=== PATIENT | male | born 1965 | race Caucasian/White ===

== ENCOUNTER 2016-09-16 16:43 | Emergency (ER) | payer BC, SELFPAY ==
[2016-09-16] MEDS ORDERED: Aspirin 81 MG Tab.Chew PO ONE (17:10)
--- NOTE | 2016-09-16 17:21 | EDM.PDOC ---
ED HISTORY OF PRESENT ILLNESS - General Stated Complaint: CHEST PAIN Time Seen by Provider: 09/16/16 16:58 Source of Information: Reports: Patient History Limitations: Reports: No limitations - History of Present Illness INITIAL COMMENTS - FREE TEXT/NARRATIVE: Patient presents from a clinic visit with Dr. Aguirre this afternoon. He had been having problems with cough, bronchitis and possible allergies and treated with Z-pack without success. Today he also complained of heaviness in his chest so a troponin was checked with 0.08 result. Pt tells me he has noticed a definite heaviness across his upper chest for the last week or two. This occurs with activity and resolves with rest, typically lasting a few minutes. Not a true pain but a definite heavy feeling he says. He has never had this before and denies any problems with his heart in the past. He is not currently having any chest pain or heaviness and says the last episode was earlier today at work while walking. He doesn't take any medicines routinely. His glucose was 170 and hba1c 6.0; Dr. Aguirer says he might be early/borderline diabetic. Cholesterol is not high. - Related Data Allergies/ADRs: Allergies Allergy/AdvReac Type Severity Reaction Status Date / Time No Known Drug Allergies Allergy none Verified 09/16/16 17:23 Home Meds: Home Meds . [No Known Home Meds] 09/16/16 [History] ED ROS GENERAL - Review of Systems Review Of Systems: See Below Constitutional: Denies: fever, chills, malaise, weakness, diaphoresis Respiratory: Denies: Shortness of Breath, Wheezing, Cough Cardiovascular: Denies: Chest pain, Lightheadedness, Syncope Endocrine: Denies: fatigue GI/Abdominal: Denies: Abdominal pain, Nausea, Vomiting : Reports: no symptoms Musculoskeletal: Denies: neck pain, shoulder pain, arm pain Skin: Denies: cyanosis, jaundice, mottled, pallor, diaphoresis Neurological: Denies: Confusion, Dizziness, Headache, Trouble Speaking Psychiatric: Denies: Agitation, Anxiety, Confusion ED EXAM, GENERAL - Physical Exam Exam: See Below Exam Limited By: No limitations General Appearance: alert, WD/WN, no apparent distress Eye Exam: bilateral eye: EOMI, normal inspection, PERRL Ears: normal external exam, hearing grossly normal Nose: normal inspection Throat/Mouth: Normal lips, Normal voice, No airway compromise Head: atraumatic, normocephalic Neck: normal inspection, full range of motion Respiratory/Chest: no respiratory distress, lungs clear, normal breath sounds, chest non-tender Cardiovascular: normal peripheral pulses, regular rate, rhythm, no edema, no gallop, no JVD, no murmur Peripheral Pulses: 2+: carotid (L), carotid (R), radial (L), radial (R), posterior tibial (L), posterior tibial (R) GI/Abdominal: normal bowel sounds, soft, non tender Extremities: normal inspection, normal range of motion, non-tender, no pedal edema Neurological: alert, oriented, normal cognition, no motor/sensory deficits Psychiatric: normal affect, normal mood Skin Exam: Warm, Dry, Intact, Normal color, No rash Course - Vital Signs Last Recorded V/S: Last Vital Signs Temp 97.1 F 09/16/16 17:20 Pulse 92 09/16/16 17:46 Resp 11 L 09/16/16 17:46 BP 133/88 09/16/16 17:46 Pulse Ox 96 09/16/16 17:46 - Orders/Labs/Meds Labs: Laboratory Tests 09/16/16 09/16/16 09/16/16 Range/Units 17:15 17:15 17:15 WBC 9.6 (5.0-10.0) 10^3/uL RBC 4.36 L (4.50-6.00) 10^6/uL Hgb 13.0 (13.0-17.0) g/dL Hct 38.0 L (40.0-52.0) % MCV 87.0 (82.0-92.0) fL MCH 29.8 (27.0-31.0) pg MCHC 34.2 (32.0-36.0) g/dL RDW 12.2 (11.5-14.5) % Plt Count 229 (150-300) 10^3/uL MPV 8.0 (7.4-10.4) fL Neut % (Auto) 60.7 (50.0-70.0) % Lymph % (Auto) 26.4 (20.0-40.0) % Hancock % (Auto) 10.4 H (2.0-8.0) % Eos % (Auto) 1.7 (1.0-3.0) % Baso % (Auto) 0.8 (0.0-1.0) % Neut # 5.8 (2.5-7.0) 10^3/uL Lymph # 2.5 (1.0-4.0) 10^3/uL Hancock # 1.0 H (0.1-0.8) 10^3/uL Eos # 0.2 (0.1-0.3) 10^3/uL Baso # 0.1 (0.0-0.1) 10^3/uL Sodium 145 (136-145) mmol/L Potassium 4.1 (3.3-5.3) mmol/L Chloride 107 (98-115) mmol/L Carbon Dioxide 26.3 (21.0-32.0) mmol/L BUN 13 (6-25) mg/dL Creatinine 0.88 (0.51-1.17) mg/dL Est Cr Clr Drug Dosing 95.13 mL/min Estimated GFR (MDRD) > 60 mL/min Glucose 110 (70-110) mg/dL Calcium 8.4 L (8.7-10.3) mg/dL CK-MB (CK-2) 2.70 (0.00-4.30) ng/mL Troponin I 0.08 H* (0.00-0.070) ng/mL Meds: Medications Discontinued Medications Generic Name Dose Route Start Last Admin Trade Name Freq PRN Reason Stop Dose Admin Aspirin 324 mg 09/16/16 17:10 09/16/16 17:24 Aspirin PO 09/16/16 17:11 324 mg ONETIME ONE Administration - Re-Assessments/Exams Free Text/Narrative Re-Assessment/Exam: 09/16/16 18:38 Troponin x 2 two hours apart were both 0.08, CKMB is 2.7, EKG shows no ST elevation or depressions. There are T-wave inversions in V5-6 and biphasic T- wave in V4. Patient has had no chest pain, pressure or heaviness for the last few hours and is completely asymptomatic in ER. Discussed findings with Dr. Fortune ([facility] public [facility] microbiologist in [place]) who advised aspirin and follow up in his clinic tomorrow for evaluation and stress test. Discussed findings and plan with patient and his . Pt discharged in stable condition. Departure - Departure Time of Disposition: 18:20 Disposition: Home, Self-Care 01 Condition: good Clinical Impression: Stable angina Instructions: Angina Pectoris Referrals: Eun Haines MD [Primary Care Provider] - Additional Instructions: 1. Take an aspirin daily until you see the public health microbiologist. 2. Tomorrow morning call the cardiology clinic at the number the nurse gave you to schedule an appointment and stress test with them in the next day or two. 3. If you have worsening chest pain or heaviness before then go to the ER right away.
[2016-09-16 17:43] LABS: CHLORIDE,CL 107 mmol/L (98-115); SODIUM,NA 145 mmol/L (136-145)
[2016-09-16 17:46] VITALS: BP 133/88
== END 2016-09-16 18:25 | disposition home or self-care (01) ==
LOC: KA.ED 16:43
DX: I20.8 Other forms of angina pectoris (principal)
CPT/HCPCS: 36415; 80048; 82553; 84484; 85025; 99285; A9270; 93005

== ENCOUNTER 2016-10-04 14:55 | Emergency (ER) | payer BC, SELFPAY ==
--- NOTE | 2016-10-04 16:11 | EDM.PDOC ---
ED HISTORY OF PRESENT ILLNESS - General Chief Complaint: Respiratory Problem Stated Complaint: SHORTNESS OF BREATH Time Seen by Provider: 10/04/16 15:15 Source of Information: Reports: Patient History Limitations: Reports: No limitations - History of Present Illness INITIAL COMMENTS - FREE TEXT/NARRATIVE: PT STATES HE IS BECOMING GRADUALLY MORE SHORT OF BREATH OVER PAST MONTH. SYMPTOM WORSE WITH LYING FLAT. WAS SEEN HERE SEPTEMBER 16 FOR URI AND WAS ALSO REFERRED TO CARDIOLOGY. DIAGNOSED WITH LVH AND FOUND TO HAVE EJ OF 25%. DENIES CP, N/V/D, ABD PAIN, LE EDEMA, RYAN, OR DIZZINESS. STARTED ON NEW HTN MEDS RECENTLY AND HAS FELT WEAK SINCE. Timing/Duration: Reports: Gradual onset Severity: mild Quality: Reports: Other (DENIES PAIN) Improves with: Reports: Rest Worsens with: Reports: Other (ambulation) Associated Symptoms (General): Reports: cough, shortness of breath - Related Data Allergies/ADRs: Allergies Allergy/AdvReac Type Severity Reaction Status Date / Time No Known Drug Allergies Allergy none Verified 10/04/16 15:15 Home Meds: Home Meds Aspirin [Adult Low Dose Aspirin EC] 81 mg PO DAILY 10/04/16 [History] Carvedilol [Carvedilol] 6.25 mg PO BID 10/04/16 [History] Lisinopril [Lisinopril] 10 mg PO DAILY 10/04/16 [History] Loratadine [Claritin] 10 mg PO DAILY 10/04/16 [History] Past Medical History HEENT History: Reports: None Cardiovascular History: Reports: Hypertension Musculoskeletal History: Reports: Fracture Neurological History: Reports: Concussion - Infectious Disease History Infectious Disease History: Reports: Chicken pox, Measles, Mumps - Past Surgical History HEENT Surgical History: Reports: Adenoidectomy, Tonsillectomy Cardiovascular Surgical History: Reports: None Musculoskeletal Surgical History: Reports: Other (see below) Other Musculoskeletal Surgeries/Procedures:: repair of fracture to left thumb/ hand Social & Family History - Family History HEENT: Reports: None Cardiac: Reports: None Respiratory: Reports: None OBGYN: Reports: None Musculoskeletal: Reports: None Endocrine/Metabolic: Reports: Diabetes, type II - Tobacco Use Smoking Status *Q: Never Smoker Second Hand Smoke Exposure: No - Caffeine Use Caffeine Use: Reports: Soda - Recreational Drug Use Recreational Drug Use: No ED ROS GENERAL - Review of Systems Review Of Systems: ROS reveals no pertinent complaints other than HPI. Constitutional: Reports: weakness, fatigue HEENT: Reports: No symptoms Respiratory: Reports: Shortness of Breath, Cough Cardiovascular: Reports: No symptoms Endocrine: Reports: no symptoms GI/Abdominal: Reports: No symptoms : Reports: no symptoms Musculoskeletal: Reports: no symptoms Skin: Reports: no symptoms Neurological: Reports: No Symptoms Psychiatric: Reports: No symptoms Hematologic/Lymphatic: Reports: no symptoms Immunologic: Reports: no symptoms ED EXAM, GENERAL - Physical Exam Exam: See Below Exam Limited By: No limitations General Appearance: alert, WD/WN, no apparent distress Nose: normal inspection, normal mucosa, no blood Throat/Mouth: Normal inspection, Normal oropharynx, No airway compromise Head: atraumatic, normocephalic Neck: normal inspection, supple Respiratory/Chest: no respiratory distress, chest non-tender, rales ([facility] [employer]) Cardiovascular: regular rate, rhythm, no murmur, no rub GI/Abdominal: normal bowel sounds, soft, non tender Back Exam: normal inspection. No: CVA tenderness (L), CVA tenderness (R) Extremities: normal inspection, no pedal edema Neurological: alert, oriented, normal cognition Psychiatric: normal affect, normal mood Skin Exam: Warm, Dry, Intact, Normal color, No rash Lymphatic: no adenopathy EKG INTERPRETATION EKG Date: 10/04/16 Time: 16:30 Rhythm: NSR [place]: LAD-left axis deviation QT: prolonged Comparison: no change Course - Vital Signs Last Recorded V/S: Last Vital Signs Temp 97.3 F 10/04/16 15:10 Pulse 84 10/04/16 15:10 Resp 12 10/04/16 15:10 BP 147/89 H 10/04/16 15:10 Pulse Ox 95 10/04/16 15:10 - Orders/Labs/Meds Orders: Active Orders 24 hr Category Date Time Status Chest 2V [CR] Stat Exams 10/04/16 15:26 Taken - Radiology Interpretation Free Text/Narrative:: CXR SHOWS MILD CONGESTION - Re-Assessments/Exams Free Text/Narrative Re-Assessment/Exam: 10/04/16 17:34 PT AFEBRILE, NONTOXIC APPEARING, VSS. BNP ELEVATED AND GIVEN 20MG LASIX. SCHEDULED WITH DR ARORA ON THURSDAY. Departure - Departure Time of Disposition: 17:35 Disposition: Home, Self-Care 01 Condition: good Clinical Impression: Congestive heart failure (CHF) Qualifiers: Congestive heart failure type: unspecified congestive heart failure type Congestive heart failure chronicity: acute on chronic Qualified Code(s): I50.9 - Heart failure, unspecified Instructions: Heart Failure, [id number] Forms: ED Department Discharge Additional Instructions: FOLLOW UP WITH DR ARORA ON THURSDAY SCHEDULED. RETURN TO ER SOONER IF SYMPTOMS CONTINUE - My Orders Last 24 Hours: My Active Orders 10/04/16 15:26 Chest 2V [CR] Stat - Assessment/Plan Last 24 Hours: My Active Orders 10/04/16 15:26 Chest 2V [CR] Stat Assessment:: CHF Plan: FOLLOW UP WITH PCP ON THURSDAY
[2016-10-04] MEDS ORDERED: Sodium Chloride 0.9% 5 ML Syringe FLUSH PRN (16:13)
[2016-10-04 16:51] LABS: CHLORIDE,CL 108 mmol/L (98-115); SODIUM,NA 146 mmol/L (136-145)
[2016-10-04] MEDS ORDERED: Furosemide 20 MG Tab PO ONE ×2 (17:02→17:17)
[2016-10-04 17:36] VITALS: BP 135/91
== END 2016-10-04 18:00 | disposition home or self-care (01) ==
LOC: KA.ED 14:55
DX: I11.0 Hypertensive heart disease with heart failure (principal); I50.9 Heart failure, unspecified; Z98.890 Other specified postprocedural states; Z79.82 Long term (current) use of aspirin; Z79.899 Other long term (current) drug therapy
CPT/HCPCS: 36415; 71020; 80053; 83880; 85025; 93005; 99285; A9270

== ENCOUNTER 2016-10-05 08:23 | Emergency (ER) | payer BC, SELFPAY ==
[2016-10-05 08:33] VITALS: BP 141/98
[2016-10-05 09:26] LABS: CHLORIDE,CL 109 mmol/L (98-115); SODIUM,NA 144 mmol/L (136-145)
--- NOTE | 2016-10-05 09:30 | EDM.PDOC ---
ED HISTORY OF PRESENT ILLNESS - General Chief Complaint: Respiratory Problem Stated Complaint: SHORTNESS OF BREATH Time Seen by Provider: 10/05/16 09:00 Source of Information: Reports: Patient History Limitations: Reports: No limitations - History of Present Illness INITIAL COMMENTS - FREE TEXT/NARRATIVE: PT STATES HIS SOB DID NOT IMPROVE FROM YESTERDAY'S VISIT. TOOK LASIX BUT HAD HARD TIME GETTING COMFORTABLE AND COULD NOT LIE FLAT TO SLEEP. SEEN HERE AND 10/04/16 FOR SAME. YESTERDAY CXR SHOWED MILD CHF AND BNP WAS ELEVATED AT 1340. DENIES CP, RYAN, ABD PAIN, N/V/D. HAS PERSISTENT COUGH BUT STARTED ON LISINOPRIL 3 WEEKS AGO. Symptom Onset Date: 09/16/16 Timing/Duration: Reports: Week(s):, Gradual onset Severity: mild Improves with: Reports: None Worsens with: Reports: Other (LYING FLAT) Associated Symptoms (General): Reports: cough, shortness of breath. Denies: diaphoresis, fever/chills, nausea/vomiting - Related Data Allergies/ADRs: Allergies Allergy/AdvReac Type Severity Reaction Status Date / Time No Known Drug Allergies Allergy none Verified 10/04/16 15:15 Home Meds: Home Meds Aspirin [Adult Low Dose Aspirin EC] 81 mg PO DAILY 10/04/16 [History] Carvedilol [Carvedilol] 6.25 mg PO BID 10/04/16 [History] Lisinopril [Lisinopril] 10 mg PO DAILY 10/04/16 [History] Loratadine [Claritin] 10 mg PO DAILY 10/04/16 [History] Furosemide [Lasix] 20 mg PO DAILY 10/05/16 [History] Past Medical History HEENT History: Reports: None Cardiovascular History: Reports: Heart Failure, Hypertension Musculoskeletal History: Reports: Fracture Neurological History: Reports: Concussion - Infectious Disease History Infectious Disease History: Reports: Chicken pox, Measles, Mumps - Past Surgical History HEENT Surgical History: Reports: Adenoidectomy, Tonsillectomy Cardiovascular Surgical History: Reports: None Musculoskeletal Surgical History: Reports: Other (see below) Other Musculoskeletal Surgeries/Procedures:: repair of fracture to left thumb/ hand Social & Family History - Family History HEENT: Reports: None Cardiac: Reports: None Respiratory: Reports: None OBGYN: Reports: None Musculoskeletal: Reports: None Endocrine/Metabolic: Reports: Diabetes, type II - Tobacco Use Smoking Status *Q: Never Smoker Second Hand Smoke Exposure: No - Caffeine Use Caffeine Use: Reports: Soda - Recreational Drug Use Recreational Drug Use: No ED ROS GENERAL - Review of Systems Review Of Systems: ROS reveals no pertinent complaints other than HPI. Constitutional: Reports: no symptoms HEENT: Reports: No symptoms Respiratory: Reports: Shortness of Breath Cardiovascular: Reports: No symptoms Endocrine: Reports: no symptoms GI/Abdominal: Reports: No symptoms : Reports: no symptoms Musculoskeletal: Reports: no symptoms Skin: Reports: no symptoms Neurological: Reports: No Symptoms Psychiatric: Reports: Anxiety Hematologic/Lymphatic: Reports: no symptoms Immunologic: Reports: no symptoms ED EXAM, GENERAL - Physical Exam Exam: See Below Exam Limited By: No limitations General Appearance: alert, WD/WN, no apparent distress Nose: normal inspection, no blood Throat/Mouth: Normal inspection, Normal oropharynx, No airway compromise Respiratory/Chest: no respiratory distress, lungs clear, normal breath sounds, no accessory muscle use, chest non-tender Cardiovascular: regular rate, rhythm, no murmur EKG INTERPRETATION EKG Date: 10/05/16 Time: 08:55 [place]: LAD-left axis deviation ST-T: depressed QT: prolonged Comparison: no change Course - Vital Signs Last Recorded V/S: Last Vital Signs Temp 96.9 F 10/05/16 08:29 Pulse 89 10/05/16 08:29 Resp 18 10/05/16 08:29 BP 141/98 H 10/05/16 08:29 Pulse Ox 96 10/05/16 08:29 - Orders/Labs/Meds Orders: Active Orders 24 hr Category Date Time Status EKG Documentation Completion [RC] ASDIRECTED Care 10/05/16 08:42 Active B-TYPE NATRIURETIC PEPTIDE,BNP [CHEM] Stat Lab 10/05/16 09:22 Ordered BASIC METABOLIC PANEL,BMP [CHEM] Stat Lab 10/05/16 08:50 Received CKMB [CHEM] Stat Lab 10/05/16 08:50 Received TROPONIN I [CHEM] Stat Lab 10/05/16 08:50 Received EKG 12 Lead [EK] Routine Ther 10/05/16 08:41 Ordered - Re-Assessments/Exams Free Text/Narrative Re-Assessment/Exam: 10/05/16 10:02 PT AFEBRILE, NONTOXIC APPEARING, VSS. DISCUSSED CASE IN LENGTH WITH DR QUINONES. SUGGESTED LASIX AND METOLAZONE NOW AND CALL HIS OFFICE TOMORROW FOR F/U APPOINTMENT TIME 10/05/16 10:19 Departure - Departure Time of Disposition: 10:19 Disposition: Home, Self-Care 01 Condition: good Clinical Impression: Anxiety Congestive heart failure (CHF) Qualifiers: Congestive heart failure type: unspecified congestive heart failure type Congestive heart failure chronicity: acute on chronic Qualified Code(s): I50.9 - Heart failure, unspecified Instructions: Shortness of Breath, [id number], Heart Failure, [id number] Forms: ED Department Discharge Additional Instructions: CALL DR QUINONES'S OFFICE TOMORROW MORNING FOR FOLLOW UP APPOINTMENT TIME - My Orders Last 24 Hours: My Active Orders 10/05/16 08:41 EKG 12 Lead [EK] Routine 10/05/16 08:42 EKG Documentation Completion [RC] ASDIRECTED 10/05/16 08:50 BASIC METABOLIC PANEL,BMP [CHEM] Stat CKMB [CHEM] Stat TROPONIN I [CHEM] Stat 10/05/16 09:22 B-TYPE NATRIURETIC PEPTIDE,BNP [CHEM] Stat - Assessment/Plan Last 24 Hours: My Active Orders 10/05/16 08:41 EKG 12 Lead [EK] Routine 10/05/16 08:42 EKG Documentation Completion [RC] ASDIRECTED 10/05/16 08:50 BASIC METABOLIC PANEL,BMP [CHEM] Stat CKMB [CHEM] Stat TROPONIN I [CHEM] Stat 10/05/16 09:22 B-TYPE NATRIURETIC PEPTIDE,BNP [CHEM] Stat Assessment:: CHF / SOB Plan: F/U WITH DR QUINONES TOMORROW
[2016-10-05] MEDS ORDERED: Metolazone 2.5 MG Tab PO ONE (10:01)
[2016-10-05] MEDS ORDERED: Furosemide 40 MG/4 ML VIAL IVPUSH ONE (10:01)
[2016-10-05] MEDS ORDERED: LORazepam 0.5 MG Tab PO ONE (10:06)
== END 2016-10-05 10:50 | disposition home or self-care (01) ==
LOC: KA.ED 08:23
DX: I11.0 Hypertensive heart disease with heart failure (principal); I50.9 Heart failure, unspecified; F41.9 Anxiety disorder, unspecified; Z79.82 Long term (current) use of aspirin; Z79.899 Other long term (current) drug therapy; Z98.890 Other specified postprocedural states
CPT/HCPCS: 36415; 80048; 82553; 83880; 84484; 93005; 96374; 99285; A9270; J1940

== ENCOUNTER 2017-07-29 18:15 | Emergency (ER) | payer BC ==
[2017-07-29 18:22] VITALS: BP 147/85
--- NOTE | 2017-07-29 19:12 | EDM.PDOC ---
ED HPI GENERAL MEDICAL PROBLEM - General Chief Complaint: General Stated Complaint: FEVER, VOMITTING Time Seen by Provider: 07/29/17 18:57 Source of Information: Reports: Patient History Limitations: Reports: No Limitations - History of Present Illness INITIAL COMMENTS - FREE TEXT/NARRATIVE: Patient is a 52-year-old gentleman who presents to the emergency Department this evening with a complaint of nausea, one episode of vomiting and overall body aches. Patient states that symptoms progressively worsened and so decided to come to be evaluated. Patient denies fever, family members with similar symptoms, out of country travel, chest pain, shortness of breath, abdominal pain , or blood in stool. Onset: Today Onset Date: 07/29/17 Duration: Hour(s): Quality: Reports: Other (No chest pain or abdominal pain) Severity: Mild Improves with: Reports: None Worsens with: Reports: None Associated Symptoms: Reports: No Other Symptoms - Related Data Allergies Allergy/AdvReac Type Severity Reaction Status Date / Time No Known Drug Allergies Allergy none Verified 07/29/17 18:22 Home Meds: Home Meds Aspirin [Adult Low Dose Aspirin EC] 81 mg PO DAILY 10/04/16 [History] Carvedilol [Carvedilol] 25 mg PO BID 10/04/16 [History] Lisinopril [Lisinopril] 25 mg PO BID 10/04/16 [History] Furosemide [Lasix] 40 mg PO DAILY 10/05/16 [History] Past Medical History HEENT History: Reports: None Cardiovascular History: Reports: Heart Failure, Hypertension Musculoskeletal History: Reports: Fracture Neurological History: Reports: Concussion - Infectious Disease History Infectious Disease History: Reports: Chicken Pox, Measles, Mumps - Past Surgical History HEENT Surgical History: Reports: Adenoidectomy, Tonsillectomy Cardiovascular Surgical History: Reports: None Musculoskeletal Surgical History: Reports: Other (See Below) Social & Family History - Family History HEENT: Reports: None Cardiac: Reports: None Respiratory: Reports: None OBGYN: Reports: None Musculoskeletal: Reports: None Endocrine/Metabolic: Reports: Diabetes, type II - Tobacco Use Smoking Status *Q: Never Smoker Second Hand Smoke Exposure: No - Caffeine Use Caffeine Use: Reports: Soda, Tea - Alcohol Use Days Per Week of Alcohol Use: 2 Number of Drinks Per Day: 1 Total Drinks Per Week: 2 - Recreational Drug Use Recreational Drug Use: No ED ROS GENERAL - Review of Systems Review Of Systems: ROS reveals no pertinent complaints other than HPI. Constitutional: Reports: Malaise HEENT: Reports: No Symptoms Respiratory: Reports: No Symptoms Cardiovascular: Reports: No Symptoms Endocrine: Reports: No Symptoms GI/Abdominal: Reports: Nausea, Vomiting. Denies: Abdominal Pain : Reports: No Symptoms Musculoskeletal: Reports: No Symptoms Skin: Reports: No Symptoms Neurological: Reports: No Symptoms Psychiatric: Reports: No Symptoms Hematologic/Lymphatic: Reports: No Symptoms Immunologic: Reports: No Symptoms ED EXAM, GENERAL - Physical Exam Exam: See Below Exam Limited By: No Limitations General Appearance: Alert, WD/WN, No Apparent Distress Eye Exam: Bilateral Eye: Normal Inspection Nose: Normal Inspection, Normal Mucosa, No Blood Throat/Mouth: Normal Inspection, Normal Oropharynx, No Airway Compromise Head: Atraumatic, Normocephalic Neck: Normal Inspection, Supple Respiratory/Chest: No Respiratory Distress, Lungs Clear, Normal Breath Sounds, No Accessory Muscle Use, Chest Non-Tender Cardiovascular: Regular Rate, Rhythm, No Murmur GI/Abdominal: Normal Bowel Sounds, Soft, Non-Tender, No Organomegaly, No Distention, No Abnormal Bruit, No Mass Back Exam: Normal Inspection. No: CVA Tenderness (L), CVA Tenderness (R) Extremities: Normal Inspection, No Pedal Edema Neurological: Alert, Oriented, Normal Cognition Psychiatric: Normal Affect, Normal Mood Skin Exam: Warm, Dry, Intact, Normal Color, No Rash Lymphatic: No Adenopathy Course - Vital Signs Last Recorded V/S: Last Vital Signs Temp 99.6 F 07/29/17 18:19 Pulse 106 H 07/29/17 18:19 Resp 20 07/29/17 18:19 BP 147/85 H 07/29/17 18:19 Pulse Ox 97 07/29/17 18:19 - Orders/Labs/Meds Orders: Active Orders 24 hr Category Date Time Status Chest 2V [CR] Stat Exams 07/29/17 18:29 Ordered - Radiology Interpretation Free Text/Narrative:: Chest x-ray shows no acute cardiopulmonary process. - Re-Assessments/Exams Free Text/Narrative Re-Assessment/Exam: 07/29/17 19:19 Patient afebrile, nontoxic appearing, vital signs stable. Influenza negative. Patient will follow-up with PCP in one to 2 days. Departure - Departure Time of Disposition: 19:20 Disposition: Home, Self-Care 01 Condition: Good Clinical Impression: Viral syndrome Nausea & vomiting Qualifiers: Vomiting type: unspecified Vomiting Intractability: non-intractable Qualified Code(s): R11.2 - Nausea with vomiting, unspecified - Discharge Information Instructions: Nausea and Vomiting, Adult Referrals: Eun Haines MD [Primary Care Provider] - Forms: ED Department Discharge Additional Instructions: Follow[facility]up at [facility] in 1-2 days. Return to emergency department sooner if symptoms continue or worsen. - My Orders Last 24 Hours: My Active Orders 07/29/17 18:29 Chest 2V [CR] Stat - Assessment/Plan Last 24 Hours: My Active Orders 07/29/17 18:29 Chest 2V [CR] Stat Assessment:: Viral syndrome Plan: Follow-up with PCP 1-2 days
[2017-07-29] MEDS ORDERED: Acetaminophen 325 MG Tab PO ONE (19:20)
== END 2017-07-29 19:30 | disposition home or self-care (01) ==
LOC: KA.ED 18:15
DX: B34.9 Viral infection, unspecified (principal); I11.0 Hypertensive heart disease with heart failure; I50.9 Heart failure, unspecified; Z79.82 Long term (current) use of aspirin; Z79.899 Other long term (current) drug therapy
CPT/HCPCS: 71046; 87804; 99283; A9270

== ENCOUNTER 2018-09-13 11:20 | Day surgery (SDC) | payer BC ==
[2018-09-13] MEDS ORDERED: Lactated Ringers 1,000 ML IV SCH (11:30)
[2018-09-13] MEDS ORDERED: Sodium Chloride 0.9% 10 ML Syringe FLUSH PRN (11:30)
[2018-09-13] MEDS ORDERED: Midazolam 1 MG/ML 2 ML SDV ONE (11:40)
[2018-09-13] MEDS ORDERED: Propofol 200 MG/20 ML SDV ONE (11:40)
[2018-09-13] MEDS ORDERED: Midazolam 1 MG/ML 2 ML SDV IV ONE (13:07)
[2018-09-13] MEDS ORDERED: Propofol 200 MG/20 ML SDV IV ONE (13:07)
--- NOTE | 2018-09-13 13:08 | PCM.PN ---
- General Info Date of Service: 09/13/18 - Review of Systems Systems Review Comment:: 53 y/o male with history of rectal bleeding here for his initial colonoscopy. He is medically stable to proceed. His recent H and P is reviewed and no significant changes are noted. I have discussed the proposed colonoscopy with the patient. Risks such as but not limited to bleeding and GI injury are reviewed. He agrees to proceed accepting risks. - Patient Data Vitals - Most Recent: Last Vital Signs Temp 96.5 F 09/13/18 11:30 Pulse 66 09/13/18 11:30 Resp 16 09/13/18 11:30 BP 130/84 09/13/18 11:30 Pulse Ox 98 09/13/18 11:30 Weight - Most Recent: 73.482 kg Med Orders - Current: Current Medications Lactated Ringer's (Ringers, Lactated) 1,000 mls @ 50 mls/hr IV ASDIRECTED BHARTI Sodium Chloride (Saline Flush) 10 ml FLUSH Q8HR PRN PRN Reason: keep vein open Discontinued Medications Midazolam HCl (Versed 1 Mg/Ml) Confirm Administered Dose 2 mg .ROUTE .STK-MED ONE Stop: 09/13/18 11:41 Propofol (Diprivan 20 Ml) Confirm Administered Dose 200 mg .ROUTE .STK-MED ONE Stop: 09/13/18 11:41 - Problem List Review Problem List Initiated/Reviewed/Updated: Yes - My Orders Last 24 Hours: My Active Orders 09/13/18 11:30 Peripheral IV Care [RC] . DIRECTED Vital Signs [RC] PER UNIT ROUTINE Lactated Ringers [Ringers, Lactated] 1,000 ml IV ASDIRECTED Sodium Chloride 0.9% [Saline Flush] 10 ml FLUSH Q8HR PRN Peripheral IV Insertion Adult [OM.PC] Routine 09/13/18 12:00 Patient to Empty Bladder [RC] ASDIRECTED 09/13/18 13:00 Verify Patient Consent Obtain [RC] ASDIRECTED 09/13/18 Breakfast Nothing Per Oral Diet [DIET] - Assessment Assessment:: Rectal Bleeding - Plan Plan:: Colonoscopy
--- NOTE | 2018-09-13 13:49 | PCM.OPNOTE ---
- General Post-Op/Procedure Note Date of Surgery/Procedure: 09/13/18 Operative Procedure(s): Colonoscopy with Polypectomy Findings: Large Sigmoid Colon Polyp Moderate Sigmoid Diverticulosis Moderate sized internal hemorrhoids Pre Op Diagnosis: Rectal Bleeding Post-Op Diagnosis: Sigmoid Diverticulosis. Colon Polyp. Hemorrhoids Anesthesia Technique: MAC Primary Surgeon: Deniz Matamoros Pathology: Sigmoid Colon Polyp Output, Urine Amount: 0 EBL in mLs: 0 Complications: None Condition: Good
[2018-09-13 14:22] VITALS: BP 113/76
--- NOTE | 2018-09-13 14:41 | OR ---
DATE OF SURGERY: 09/13/2018 SURGEON: Deniz Matamoros MD PREOPERATIVE DIAGNOSIS: Rectal bleeding. POSTOPERATIVE DIAGNOSIS: Sigmoid colon polyp, sigmoid diverticulosis, and internal hemorrhoids. OPERATION PERFORMED: Colonoscopy with polypectomy. INDICATIONS FOR SURGERY: This 53-year-old male was referred for his initial colonoscopy. He has been having some rectal bleeding. FINDINGS: In the sigmoid colon 25 cm from the anal verge, the patient has a large pedunculated polyp. It was estimated at 2 cm in size. There was also moderate degree of sigmoid diverticulosis, which does not appear to be bleeding or otherwise complicated. The patient has a [id number] degree of internal hemorrhoids with some mild irritation, but no active bleeding seen at this time. The remainder of the colon appears normal. DESCRIPTION OF PROCEDURE: The patient was taken to the operating room. He was given intravenous sedation, and with him in the left lateral decubitus position, digital rectal exam was performed showing no rectal masses. The Olympus colonoscope was inserted into the rectum. Retroflexed examination of the rectal canal was performed. The scope was then carefully advanced up to the sigmoid colon level where the above-described polyp was identified. This polyp was removed with a cautery snare with the polyp grossly being completely removed. The polyp was held on the end of the scope with suction. The scope was removed and the polyp was retrieved. The scope was then carefully re-inserted into the rectum and advanced under direct visualization through the entire length of the colon until the cecum was reached. Cecal acquisition was confirmed by noting normal internal cecal anatomy including the appendiceal orifice and ileocecal valve. The light was also noted to transilluminate the abdominal wall in the right lower quadrant. After examining the cecum, the scope was slowly withdrawn, sequentially re-examining the colonic segments. The polypectomy site was also re-examined. No sign of bleeding or any other complications noted. After the exam was completed, the scope was removed and the patient was taken from the operating room in satisfactory condition. ESTIMATED BLOOD LOSS: Zero. COMPLICATIONS: None. PROGNOSIS: Good. /[id number]/MODL
== END 2018-09-13 15:20 | disposition home or self-care (01) ==
LOC: KA.SDS 11:20
PROVIDERS: ATTEND Surgery
DX: K62.5 Hemorrhage of anus and rectum (principal); D12.5 Benign neoplasm of sigmoid colon; K64.8 Other hemorrhoids; K57.30 Diverticulosis of large intestine without perforation or abscess without bleeding; I42.9 Cardiomyopathy, unspecified; Z79.82 Long term (current) use of aspirin; Z79.899 Other long term (current) drug therapy
CPT/HCPCS: 45385; J2250; J2704; J7120